=== PATIENT | female | born 1985 | race Caucasian/White ===

== ENCOUNTER 2019-10-15 10:30 | Emergency (ER) | payer OTHER, SELFPAY ==
[~2019-10-15 10:30] MED LIST: Sodium Chloride 0.9% 100 ML BAG ONE
[2019-10-15] MEDS ORDERED: Fosphenytoin Sodium 500 mg/10 ml Vial ONE (10:51)
[2019-10-15 11:08] LABS: #Basophils 0.1 thou/uL (0.0-0.2); #Eosinphils 0.1 thou/uL (0.0-0.7); #Lymphocytes 1.9 thou/uL (1.20-3.40); #Monocytes 0.4 thou/uL (0.11-0.59); #Neutrophils 4.2 thou/uL (1.40-6.50); %Basophils 0.9 % (0.0-1.0); %Eosinophils 1.6 % (0.0-10.0); %Monocytes 5.9 % (0.0-10.0); %Neutrophils 63.7 % (42.0-75.0); Hemoglobin 14.3 g/dL (12.0-16.0); Mean Corpuscular HGB CONC 32.3 g/dL (32.0-36.0); Mean Corpuscular Hemoglobin 28.2 pg (27.0-31.0); Mean Corpuscular Volume 87.3 fL (78.0-98.0); Mean Platelet Volume 7.9 fL (7.4-10.4); Platelet Count 179 thou/uL (130-400); RBC Distribution Width 11.5 % (11.5-14.5); Red Blood Cell (RBC) Count 5.08 mill/uL (4.20-5.40); White Blood Cell (WBC) Count 6.6 thou/uL (4.8-10.8)
[2019-10-15 11:16] LABS: ALT (SGPT) 22 U/L (8-55); AST (SGOT) 18 U/L (5-34); Alkaline Phosphatase 93 U/L (40-110); Anion Gap 14 mmol/L (10-20); BUN (Urea Nitrogen) 12 mg/dL (7.0-18.7); Bilirubin, Total 0.3 mg/dL (0.2-1.2); Calc. Creatinine Clearance 0 mL/min (70-130); Calcium 8.5 mg/dL (7.8-10.44); Carbon Dioxide 21 mmol/L (22-29); Chloride 107 mmol/L (98-107); Estimated GFR-MDRD 84; Globulin 2.5 g/dL (2.4-3.5); Glucose 71 mg/dL (70-105); Potassium 4.1 mmol/L (3.5-5.1); Protein, Total 6.5 g/dL (6.0-8.3); Sodium 138 mmol/L (136-145)
[2019-10-15 11:44] LABS: Bilirubin Negative (Negative); Blood, Urine Negative (Negative); Clarity Clear (Clear); Glucose, Urine (Dipstick) Negative (Negative); Leukocyte Negative (Negative); Nitrite Negative (Negative); Protein, Urine (Dipstick) Negative (Neg-Trace); Urobilinogen 0.2 mg/dL (Less than 2)
[2019-10-15 11:47] LABS: Pregnancy Test - Urine (BHCG) Negative (Negative); Pregu Control Background? CLEAR/WHITE (CLR/WHITE); Pregu Control Bar Appear? YES (CONTROL BAR); Specific Gravity 1.023 (1.002-1.036)
[2019-10-15] MEDS ORDERED: Ketorolac Tromethamine 30 MG/ML VIAL ONE (11:48)
[2019-10-15 11:52] LABS: Amphetamine Detected (NotDetected); Barbiturates Screen Detected (NotDetected); Benzodiazepine Screen Not Detected (NotDetected); Cocaine Metabolite Screen Not Detected (NotDetected); Medtox Control Line Valid? VALID (VALID); Methadone Not Detected (NotDetected); Methamphetamine Not Detected (NotDetected); Opiate Screen Not Detected (NotDetected); Oxycodone Screen Not Detected (NotDetected); Phencyclidine (PCP) Not Detected (NotDetected); THC/Cannabinoid Screen Not Detected (NotDetected); Tricyclic Screen Not Detected (NotDetected)
--- NOTE | 2019-10-15 13:07 | CT ---
CT BRAIN WITHOUT CONTRAST: HISTORY: Injury. Seizure. COMPARISON: None. FINDINGS: There is high-grade decreased attenuation of the white matter globally and symmetrically. The gauthier m atter appears to be intact. Calvarium is intact. No hemorrhage. No midline shift. No mass effect. Paranasal sinuses and mastoids are relatively clear. 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 A pre- and post- MRI recommended nonemergently. POS: HOME
--- NOTE | 2019-10-15 13:14 | CT ---
CT CERVICAL SPINE: DATE: 10/15/2019. PROVIDED CLINICAL HISTORY: Seizure. FINDINGS: There is no evidence for a fracture or traumatic subluxation. Irregular appearance to the anterior a rch of C1 has a chronic appearance. Uncinate process hypertrophy changes at C2-3 are noted bilateral ly. No prevertebral soft tissue swelling apparent. The visualized lung apices appear clear. IMPRESSION: No evidence for a fracture or traumatic subluxation. POS: [facility]
== END 2019-10-15 12:20 | disposition home or self-care (01) ==
LOC: MADERS 10:30
DX: R56.9 Unspecified convulsions (principal); F17.210 Nicotine dependence, cigarettes, uncomplicated
CPT/HCPCS: 36415; 51701; 70450; 72125; 80053; 80306; 81003; 81025; 84443; 85025; 96365; 96375; A4353; J1885; J3490; Q2009

== ENCOUNTER 2021-06-22 21:08 | Emergency (ER) | payer MEDICAID, OTHER ==
[2021-06-22 21:34] LABS: Bilirubin Small (Negative); Blood, Urine Negative (Negative); Glucose, Urine (Dipstick) Negative (Negative); Ketone, Urine Trace mg/dL (Negative); Leukocyte Small (Negative); Nitrite Negative (Negative); Protein, Urine (Dipstick) 30 mg/dL (Neg-Trace); Specific Gravity, Urine 1.025 (1.005-1.030); Urobilinogen 0.2 mg/dL (Less than 2)
[2021-06-22 21:41] LABS: Bacteria/HPF Rare-Few HPF (None Seen); Calcium Oxalate Crystals 1+ HPF (None Seen); Mucous/LPF 2+ LPF (<2+); RBC/HPF 0-3 HPF (0-3); Yeast-Budding 1+ HPF (None Seen)
[2021-06-22 21:43] LABS: Clarity Hazy (Clear)
[2021-06-22] MEDS ORDERED: Cephalexin 500 MG CAP ONE (21:56)
== END 2021-06-22 22:13 | disposition home or self-care (01) ==
LOC: MADERS 21:08
DX: A08.4 Viral intestinal infection, unspecified (principal); N39.0 Urinary tract infection, site not specified; G40.909 Epilepsy, unspecified, not intractable, without status epilepticus; F17.210 Nicotine dependence, cigarettes, uncomplicated; Z79.899 Other long term (current) drug therapy
CPT/HCPCS: 81003; 81015; 87086; 99284

== ENCOUNTER 2022-10-10 13:35 | Emergency (ER) | payer MEDICAID, OTHER | END 2022-10-10 15:22 | disposition home or self-care (01) | LOC: MADERS 13:35 | DX: N93.9 Abnormal uterine and vaginal bleeding, unspecified (principal); G40.909 Epilepsy, unspecified, not intractable, without status epilepticus; F17.210 Nicotine dependence, cigarettes, uncomplicated | CPT/HCPCS: 36415; 84702; 85014; 85018; 99284 ==